=== PATIENT | male | born 1965 | race Caucasian/White ===

== ENCOUNTER 2019-05-10 07:30 | Emergency (ER) | payer SELFPAY ==
[2019-05-10 07:36] VITALS: BP 166/101; PULSE 79; RESP 16; TEMP 36.7; O2SAT 98
--- NOTE | 2019-05-10 07:52 | W.ED.GENAD ---
Discharge Plan Disposition Patient Disposition: HOME Condition: Fair Discharge Details Chief Complaint: Chest Pain Clinical Impression: Atypical chest pain, High blood pressure, Cigarette smoker Primary Care Provider: None,None ED Provider: Tatyana Navarrete Home Meds and New Rx's Prescriptions: No Action No Known Home Meds RF: 0 Discharge Instructions Instructions: Chest Pain (ED) Additional Instructions: Encourage hydration. You may use Tylenol as needed for discomfort. You may try salon pause or Lidoderm patches. These are available [id number]. Your pain is most consistent with muscular strain. Your imaging and labs are reassuring today. However, you are very high risk for cardiovascular issues. You will need close follow-up with primary care, I have asked her rehab care assistant help establish appointment. Please continue to cut back on smoking and alcohol. You will need to discuss her elevated blood pressure. Try to check this will not the hospital setting and record data to discuss your primary care. If you develop fever/chills, increased pain, shortness of breath, radiation of pain, nausea or other new/worsening symptoms please seek care urgently once again. Avoid activities that cause increased discomfort. Medical Decision Making Patient is a 54-year-old male with no documented health history or chronic conditions presents today with chief complaint of right-sided chest pain. Patient reports chest pain began approximately 3 days ago. 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 States that while he does have some underlying low level discomfort when at rest, the pain is greatly exacerbated with movement of the right upper extremity. He states that this morning he was cranking a trailer in the exacerbation of the discomfort is what prompted him to come to emergency department at this time. Pain does not sound to be exertional, he is not having increase in his discomfort with ambulation. Pain does not radiate. He denies feeling short of breath. No nausea or vomiting. Has not noted a rash. Is able to feel an area where he subjectively feels a swollen. I am unable to objectively palpate in the area of swelling. He does have increased pain with abduction against resistance of the right upper extremity. Patient is right-hand dominant. Denies any known trauma. Patient denies history of cardiac history, no familial history. Patient is a heavy smoker and reports over pack a day and is smoked since very young age. Also smokes marijuana daily and drinks 4 glasses of whiskey a day. On exam, the patient is resting comfortably. He has reproducible pain with movement of RUE, particularly with adduction against resistance and palpation over the mid right pectoris. Normal cardiovascular exam. Lungs are clear throughout. No evidence of trauma. Patient is elevated blood pressure 166/101. He reports that typically he is elevated but has no formal diagnosis of hypertension. ECG reviewed by Dr. Austin. NSR, rate 76. No acute ischemic changes noted. CXR reviewed by radiologist: FINDINGS: The heart is not enlarged. The lungs are clear. No pleural effusion seen. IMPRESSION: No evidence of acute process. Labs reviewed, no leukocytosis, no electrolyte abnormalities, troponin is less than 0.05. Kidney function remained stable. Discussed these findings with the patient. I advised that at this point there is no evidence of acute cardiac source of his discomfort. As noted above, his history and exam is most consistent with musculoskeletal pain. However, we did discuss with his high amounts of smoking and alcohol intake, he is at high risk for cardiovascular disease, kidney and liver dysfunction. We discussed lifestyle modifications. Advised that he try takes blood pressure when not in a hospital setting. He will need close follow-up with primary care. As the patient does not have a primary care I have asked her rehab care assistant help facilitate follow-up for reevaluation of his atypical chest pain in the next 1 to 2 weeks. He was given strict return precautions. All his questions and concerns were addressed in agreement this plan plan. In regard to pain, advised he may try heat/ice, topical patches or Tylenol. HPI General Mode of arrival: ambulatory. Date/Time Provider Initiated Documentation: 05/10/19 07:39. Limitations to Documentation: no limitations. Information obtained by: patient and RN notes reviewed. History of Present Illness 54 year old M presents to the emergency department with the chief complaint of right sided chest pain, described as mild, with intensity rated at 3. Quality is described as aching, and is localized to the chest. Patient reports no radiation. Patient started experiencing this day(s) (3) and it has been constant. Immobilization improves symptom(s), Movement worsens symptoms (RUE exertion) . Patient notes no other symptoms.; denies cough, diaphoresis, fever/chills, headaches, nausea/vomiting, rash and shortness of breath. Patient did receive the following treatments prior to arrival, Aspirin (yesterday) Related Data Home Medications Medication Instructions Recorded Confirmed Unknown [No Known Home Meds] 05/10/19 05/10/19 Allergies Allergy/AdvReac Type Severity Reaction Status Date / Time No Known Allergies Allergy Unverified 09/19/13 12:34 General Stated Complaint: Chest Pain SHANNA: 3 Review of Systems Constitutional Constitutional: Reports as per HPI, Denies chills, Denies fever(s), Denies headache(s), Denies lethargy and Denies poor appetite Eyes Eyes: Denies change in vision ENT Ears, Nose, Mouth, and Throat: Denies dizziness and Denies headache(s) Cardiovascular Cardiovascular: Reports as per HPI, Denies dyspnea and Denies dyspnea on exertion Respiratory Respiratory: Reports as per HPI, Denies chest congestion, Denies cough, Denies pain on inspiration, Denies pain with cough, Denies dyspnea, Denies dyspnea on exertion and Denies wheezing Gastrointestinal Gastrointestinal: Reports as per HPI, Denies abdominal pain, Denies diarrhea, Denies nausea and Denies vomiting Genitourinary Genitourinary: Denies system reviewed and no additional complaints, except as docu (denies change in urinary habits) Musculoskeletal Musculoskeletal: Reports as per HPI and Denies back pain Integumentary/Breasts Skin/Breast: Reports as per HPI and Denies rash Neurologic Neurologic: Reports as per HPI, Denies dizziness and Denies headache(s) Allergic/Immunologic Allergic/Immunologic: Denies wheezing [facility] Social History Smoking/Tobacco Use Status: Current every day Alcohol Intake: current Drug use: Never Substance use type: does not use Do you feel safe at home: Yes Do you feel safe in your relationship?: Yes Exam Const General: cooperative, healthy appearing, comfortable, no acute distress and well developed Nutritional Appearance: average body habitus and well nourished Orientation: alert, awake and oriented x3 HENMT Head: normal to inspection Ears: hearing grossly normal bilaterally Mouth: moist mucous membranes Neck Neck: normal visual inspection, no meningeal signs, trachea midline and supple Carotids: normal carotid upstroke Lymphatic: no lymphadenopathy noted Chest Chest: normal inspection of the chest, normal palpation of entire chest wall, no crepitus, no localized rib tenderness, no masses and tenderness pectoral muscle on the right (central area of tenderness) Chest/axillae images: 1. pain with palpation. Patient feels that this area is swollen, not objectively noted. Resp Effort & Inspection: normal respiratory effort, able to speak in complete sentences and no respiratory distress Auscultation: clear to auscultation bilaterally, no rales, no rhonchi and no wheezes Cardio Rate: regular rate Rhythm: regular rhythm Heart Sounds: S1 normal and S2 normal GI Inspection: normal to inspection, no edema and non-distended Palpation: soft, no hepatosplenomegaly, not firm, no guarding, not rigid and nontender Auscultation: normal bowel sounds Back/Spine/Pelvis Back: no CVA tenderness Thoracic/Lumbar Spine: thoracic and lumbar spine normal to inspection Skin General skin exam: no rashes or lesions noted Trauma: no lacerations or abrasions Neuro General: alert, awake and oriented x3 Cognition: normal cognition Speech: speech normal Gait: normal gait Extrem General: normal to inspection, normal capillary refill, no pedal edema, no calf tenderness and normal gait Right upper extremity: normal to inspection, full ROM (pain elicited in chest wall with adduction against resistance), normal capillary refill and no joint enlargement Psych Appearance: grossly normal and well kempt Mental Status: mental status grossly normal Speech and Movement: speech and movement normal Course Vital Signs Vital signs: Vital Signs Temperature 36.7 C 05/10/19 07:36 Pulse 79 05/10/19 07:36 Respiratory Rate 16 05/10/19 07:36 Blood Pressure 166/101 H 05/10/19 07:36 Pulse Oximetry 98 05/10/19 07:36 Temperature 36.7 C 05/10/19 07:36 Temperature Source Temporal Artery Scan 05/10/19 07:36 Pulse 79 05/10/19 07:36 Respiratory Rate 16 05/10/19 07:36 Blood Pressure 166/101 H 05/10/19 07:36 Blood Pressure Position Supine 05/10/19 07:36 Pulse Oximetry 98 05/10/19 07:36 Oxygen Delivery Method Room Air 05/10/19 07:36 Oxygen Flow Rate 0 05/10/19 07:36 Pain Level 3 05/10/19 07:36
[2019-05-10 08:11] LABS: Abs Immature Grans 0.01 k/cumm (0.0-0.09); Absolute Basophil Count 0.05 k/cumm (0.0-0.2); Absolute Lymphocyte Count 2.17 k/cumm (1.2-3.4); Absolute Monocyte Count 0.72 k/cumm (0.11-0.7); Absolute Neutrophil Count 3.99 k/cumm (1.2-6.7); Basophils % 0.7; Eosinophils % 2.8; HCT 48.4 % (40.0-50.0); HGB 16.9 g/dL (13.5-17.5); Immature Grans % 0.1; Lymphocytes % 30.4; Mean Corp. HGB Concentration 34.9 g/dL (32.0-36.0); Mean Corpuscular Hemoglobin 31.2 pg (27.0-33.0); Mean Corpuscular Volume 89.3 fL (80-95); Monocytes % 10.1; Neutrophils % 55.9; Platelet Count 266 x1000/uL (130-400); RBC 5.42 m/cumm (4.50-6.00); RBC Distribution Width 12.9 % (11.8-14.1); White Blood Cell Count 7.14 k/cumm (4.4-10.8)
--- NOTE | 2019-05-10 08:15 | DI.RAD_ITS ---
EXAM: XR CHEST 2V PA LATERAL INDICATION: right sided CP. COMPARISON: No exams were available for comparison TECHNIQUE: 2D digital imaging was performed. FINDINGS: The heart is not enlarged. The lungs are clear. No pleural effusion seen. IMPRESSION: No evidence of acute process.
[2019-05-10 08:39] LABS: ALT 27 U/L (16-63); AST 18 U/L (15-37); Albumin 4.4 g/dL (3.4-5.0); Alkaline Phosphatase 76 U/L (46-116); Anion Gap 11.8 mmol/L (3-11); BUN 14 mg/dL (7-18); Bilirubin, Total 0.7 mg/dL (0.2-1.0); CO2 25.2 mmol/L (21.0-32.0); CREATININE 0.95 mg/dL (0.70-1.30); Calcium 9.1 mg/dL (8.5-10.1); Chloride 104 mmol/L (98-107); Glucose 108 mg/dL (70-100); Magnesium 1.9 mg/dL (1.8-2.4); Potassium 3.9 mmol/L (3.5-5.1); Sodium 141 mmol/L (136-145); Total Protein 8.4 g/dL (6.4-8.2); Troponin I < 0.05 ng/mL (0.00-0.06)
[2019-05-10] MEDS: Lidocaine 5% Patch 1 PATCH TP (09:00)
[2019-05-10] MEDS: Acetaminophen 325 MG TAB 650 MG PO (09:00)
[2019-05-10 09:13] VITALS: BP 145/92; PULSE 88; RESP 16; TEMP 36.7; O2SAT 99
== END 2019-05-10 09:10 | disposition home or self-care (01) ==
PROVIDERS: Emergency Provider Physician Assistant
DX: R07.89 Other chest pain (principal); I10 Essential (primary) hypertension; F17.210 Nicotine dependence, cigarettes, uncomplicated
CPT/HCPCS: 36415; 80053; 93005; 99285; 71046; 83735; 84484; 85025; 93010